=== PATIENT | male | born 1970 | race African-American/Black ===

== ENCOUNTER 2024-04-26 15:33 | Emergency (ER) | payer SELFPAY ==
[~2024-04-26] VITALS: Ht 172.7 cm; Wt 85.0 kg
[2024-04-26 16:25] VITALS: RESP 35
[2024-04-26 16:28] VITALS: PULSE 147
[2024-04-26] MEDS: LORAZEPAM 2MG/ML INJ IV ONE (16:30)
[2024-04-26] MEDS: SODIUM CHLORIDE 0.9% 1,000 ML IV ONE ×2 (16:39)
[2024-04-26 16:42] LABS: CARBON DIOXIDE 20 mEq/L (21-32); CHLORIDE 95 mEq/L (98-107); POTASSIUM 3.3 mEq/L (3.5-5.1); SODIUM 130 mEq/L (136-145)
[2024-04-26 16:43] LABS: CALCIUM 9.1 mg/dL (8.7-10.4)
[2024-04-26 16:47] LABS: CREATININE 1.9 mg/dL (0.6-1.3); GLUCOSE 64 mg/dL (70-105); PARTIAL THROMBOPLASTIN TIME 33.6 sec (23.4-31.0); PROTHROMBIN TIME 10.9 sec (9.6-11.0)
[2024-04-26 16:48] LABS: HEMATOCRIT. 41.2 % (42.0-52.0); HEMOGLOBIN. 13.5 g/dL (14.0-18.0); MEAN CORPUSCULAR HEMOGLOBIN 29.1 pg (28.0-32.0); MEAN CORPUSCULAR HGB CONC 32.7 g/dL (31.0-37.0); MEAN CORPUSCULAR VOLUME 89.1 fL (80.0-94.0); MEAN PLATELET VOLUME 10.6 fl (7.4-10.4); RED BLOOD CELL COUNT 4.62 mill/uL (4.7-6.1); RED CELL DISTRIBUTION WIDTH 19.5 % (11.6-14.6); UREA NITROGEN BLOOD 29 mg/dL (9-23); WHITE BLOOD COUNT 2.9 x1000/uL (4.5-11.0)
[2024-04-26 16:49] LABS: ALANINE AMINOTRANSFERASE 76 IU/L (10-49); ALBUMIN 3.8 g/dL (3.2-4.8); ASPARTATE AMINOTRANSFERASE 153 IU/L (<34); TROPONIN I HIGH SENSITIVITY 15 ng/L (3.0-53)
[2024-04-26 16:50] LABS: BILIRUBIN DIRECT 0.8 mg/dL (<=3.0); BILIRUBIN TOTAL 1.6 mg/dL (0.1-1.0); PHOSPHORUS 3.1 mg/dL (2.5-4.9)
[2024-04-26] MEDS: IPRATROPIUM/ALBUTEROL 0.5-3(2.5)MG/3ML NEB HHN ONE (16:51)
[2024-04-26 16:52] LABS: ETHANOL BLOOD < 10 mg/dL (<10)
[2024-04-26 16:59] LABS: DIFFERENTIAL COMMENT 1
[2024-04-26] MEDS: DEXTROSE 50% WATER 50ML SYRINGE IV ONE (17:00)
[2024-04-26 17:02] LABS: PLATELET 39 x1000/uL (130-400)
[2024-04-26] MEDS: ETOMIDATE 2MG/ML 10ML VIAL IV ONE (18:00)
[2024-04-26] MEDS: SUCCINYLCHOLINE CHLORIDE 200MG/10ML IV ONE (18:00)
[2024-04-26] MEDS ORDERED: FENTANYL 2500MCG/250ML PMX 250 ML IV ONE (18:00)
[2024-04-26 18:03] LABS: HEMATOCRIT. 36.9 % (42.0-52.0); HEMOGLOBIN. 12.2 g/dL (14.0-18.0); MEAN CORPUSCULAR HEMOGLOBIN 29.1 pg (28.0-32.0); MEAN CORPUSCULAR VOLUME 88.1 fL (80.0-94.0); MEAN PLATELET VOLUME 9.9 fl (7.4-10.4); RED BLOOD CELL COUNT 4.19 mill/uL (4.7-6.1); RED CELL DISTRIBUTION WIDTH 19.3 % (11.6-14.6); WHITE BLOOD COUNT 2.7 x1000/uL (4.5-11.0)
[2024-04-26 18:06] LABS: DIFFERENTIAL COMMENT 1
[2024-04-26 18:08] LABS: PLATELET 36 x1000/uL (130-400)
[2024-04-26 18:13] LABS: LACTIC ACID 2.5 mmol/L (0.4-2.0)
[2024-04-26 18:15] VITALS: PULSE 141; RESP 39; O2SAT 91
[2024-04-26 18:15] LABS: LACTIC ACID 7.9 mmol/L (0.4-2.0)
[2024-04-26] MEDS: NOREPINEPHRINE 8MG/250ML PMX 250 ML IV ONE (18:15)
[2024-04-26] MEDS ORDERED: FENTANYL CITRATE 2,500 MCG in SODIUM CHLORIDE 0.9% 200 ML IV PRN (18:45)
[2024-04-26 19:05] LABS: NUCLEATED RED BLOOD CELLS 1 /100 WBC
[2024-04-26 19:06] LABS: PLATELET ESTIMATE MARKEDLY DECREASED
[2024-04-26 19:08] LABS: ANISOCYTOSIS 1+; OVALOCYTES 1+
[2024-04-26] MEDS ORDERED: ONDANSETRON HCL 4MG/2ML INJ IV PRN (19:30)
[2024-04-26] MEDS ORDERED: IPRATROPIUM/ALBUTEROL 0.5-3(2.5)MG/3ML NEB HHN PRN (19:30)
[2024-04-26] MEDS ORDERED: ACETAMINOPHEN 325MG TABLET PO PRN ×2 (19:30)
[2024-04-26] MEDS ORDERED: GUAIFENESIN 200MG/10ML SUGAR FREE UDC PO PRN (19:30)
[2024-04-26] MEDS ORDERED: DOCUSATE SODIUM 100MG CAPSULE PO PRN (19:30)
[2024-04-26] MEDS ORDERED: PANTOPRAZOLE SODIUM 40 MG/VIAL IV SCH (19:30)
[2024-04-26 19:37] LABS: ANISOCYTOSIS 2+; PLATELET ESTIMATE DECREASED
[2024-04-26 19:38] LABS: GIANT PLATELETS 1+
[2024-04-26] MEDS: PANTOPRAZOLE SODIUM 40 MG/VIAL IV ONE (19:45)
[2024-04-26] MEDS ORDERED: LORAZEPAM 1MG TABLET PO PRN (20:00)
[2024-04-26] MEDS: VANCOMYCIN 1.5GM PMX (XELLIA) 300 ML IV NR (20:00)
[2024-04-26] MEDS ORDERED: DEXTROSE 50% WATER 50ML SYRINGE IV PRN (20:00)
[2024-04-26] MEDS ORDERED: VANCOMYCIN 1.5GM/250ML 250 ML IV NR (20:15)
[2024-04-26] MEDS: FOLIC ACID 1 MG, THIAMINE HCL 100 MG, MVI, ADULT NO.1 10 ML in DEXTROSE 5% WATER 1,000 ML IV NR (20:30)
[2024-04-26] MEDS ORDERED: LORAZEPAM 2MG/ML INJ IV PRN (20:30)
[2024-04-26 20:52] VITALS: PULSE 143; RESP 39; O2SAT 96
[2024-04-26] MEDS: IPRATROPIUM/ALBUTEROL 0.5-3(2.5)MG/3ML NEB HHN SCH (20:52)
[2024-04-26] MEDS: MEROPENEM 1GM/50ML DUPLEX 50 ML IV SCH (21:00)
[2024-04-26] MEDS ORDERED: MEROPENEM 1GM/50ML DUPLEX 50 ML IV SCH (21:00)
[2024-04-26] MEDS: BLOOD SUGAR DIAGNOSTIC STRIP TEST SCH (21:00)
[2024-04-26] MEDS: PANTOPRAZOLE SODIUM 40 MG/VIAL IV SCH (21:15)
[2024-04-26] MEDS ORDERED: PIPERACILLIN/TAZO 3.375G/50ML 50 ML IV SCH (22:00)
[2024-04-27] VITALS (15 sets, daily range): BP systolic 0; BP diastolic 0; PULSE 0–136; RESP 0–33; TEMP 36.16956; O2SAT 0–99
[2024-04-27 00:34] LABS: HEMATOCRIT 36.8 % (42.0-52.0); HEMOGLOBIN 12.3 g/dL (14.0-18.0)
[2024-04-27 00:46] LABS: CREATINE KINASE 849 IU/L (46-171)
[2024-04-27] MEDS ORDERED: ACETAMINOPHEN 1000MG/100ML 100 ML IV ONE (01:00)
[2024-04-27] MEDS: ACETAMINOPHEN 650MG SUPP PR NR (01:15)
[2024-04-27] MEDS: PROPOFOL 10MG/ML 100ML 100 ML IV SCH (02:30)
[2024-04-27 04:31] LABS: HEMATOCRIT. 36.7 % (42.0-52.0); MEAN CORPUSCULAR HEMOGLOBIN 29.2 pg (28.0-32.0); MEAN CORPUSCULAR HGB CONC 32.8 g/dL (31.0-37.0); MEAN PLATELET VOLUME 8.8 fl (7.4-10.4); RED BLOOD CELL COUNT 4.12 mill/uL (4.7-6.1); RED CELL DISTRIBUTION WIDTH 19.2 % (11.6-14.6)
[2024-04-27 04:40] LABS: CHLORIDE 99 mEq/L (98-107); PLATELET 35 x1000/uL (130-400); POTASSIUM 2.9 mEq/L (3.5-5.1); SODIUM 134 mEq/L (136-145); WHITE BLOOD COUNT 1.5 x1000/uL (4.5-11.0)
[2024-04-27 04:41] LABS: CALCIUM 8.4 mg/dL (8.7-10.4); CARBON DIOXIDE 22 mEq/L (21-32)
[2024-04-27 04:46] LABS: CREATININE 1.6 mg/dL (0.6-1.3); GLUCOSE 101 mg/dL (70-105); TRIGLYCERIDE 379 mg/dL (0-150); UREA NITROGEN BLOOD 30 mg/dL (9-23)
[2024-04-27 04:47] LABS: LDL CHOLESTEROL 16 mg/dL (5-100)
[2024-04-27 04:48] LABS: ALANINE AMINOTRANSFERASE 55 IU/L (10-49); ALBUMIN 3.4 g/dL (3.2-4.8); ASPARTATE AMINOTRANSFERASE 122 IU/L (<34); BILIRUBIN DIRECT 0.7 mg/dL (<=3.0); BILIRUBIN TOTAL 1.1 mg/dL (0.1-1.0); CHOLESTEROL 126 mg/dL (<200); CREATINE KINASE 643 IU/L (46-171); HDL CHOLESTEROL < 20 mg/dL (>55)
[2024-04-27 04:49] LABS: PROTEIN TOTAL 6.5 g/dL (6.0-8.3)
[2024-04-27 04:51] LABS: THYROID STIMULATING HORMONE 0.59 uIU/mL (0.55-4.78)
[2024-04-27 05:50] LABS: CLARITY URINE CLOUDY (CLEAR); COLOR URINE DARK YELLOW (YELLOW); GLUCOSE URINE NEGATIVE (NEGATIVE); KETONES URINE 1+ (NEGATIVE); LEUKOCYTE ESTERASE URINE NEGATIVE (NEGATIVE); NITRITE URINE NEGATIVE (NEGATIVE); OCCULT BLOOD URINE 3+ (NEGATIVE); PH URINE 5.5 (4.5-8.0); PROTEIN URINE 3+ (NEGATIVE); SPECIFIC GRAVITY URINE 1.018 (1.005-1.030)
[2024-04-27 05:53] LABS: PLATELET ESTIMATE DECREASED
[2024-04-27] MEDS ORDERED: MORPHINE SULFATE 2 MG/ML INJ (NOT FOR IM USE) IV PRN (06:00)
[2024-04-27 06:07] LABS: *AMPHETAMINES SCREEN URINE NEGATIVE (NEGATIVE)
[2024-04-27 06:08] LABS: *BARBITURATES SCREEN URINE NEGATIVE (NEGATIVE); *BENZODIAZEPINES SCREEN URINE NEGATIVE (NEGATIVE); *COCAINE SCREEN URINE NEGATIVE (NEGATIVE); CANNABINOID URINE SCREEN PRESUMPTIVE POSITIVE (NEGATIVE); ECSTASY MDMA SCREEN URINE NEGATIVE (NEGATIVE); METHADONE URINE SCREEN NEGATIVE (NEGATIVE); OPIATES URINE SCREEN NEGATIVE (NEGATIVE); PHENCYCLIDINE URINE SCREEN NEGATIVE (NEGATIVE)
[2024-04-27 06:38] LABS: BACTERIA URINE 1+; RBC URINE NONE SEEN /hpf (0-2); SQUAMOUS EPITHELIAL CELL URINE FEW /lpf (RARE/1+); WBC URINE NONE SEEN /hpf (0-2)
[2024-04-27] MEDS ORDERED: NOREPINEPHRINE 8MG/250ML PMX 250 ML IV ONE (07:28)
[2024-04-27] MEDS ORDERED: NALOXONE HCL 0.4MG/ML VIAL IV PRN (07:30)
[2024-04-27] MEDS: NOREPINEPHRINE 8MG/250ML PMX 250 ML IV PRN (07:30)
[2024-04-27] MEDS: KCL 20MEQ/100ML PREMIX 100 ML IV SCH (07:49)
[2024-04-27] MEDS ORDERED: EPINEPHRINE 0.1MG/ML (1:10,000) 10ML SYR ONE (07:56)
[2024-04-27] MEDS ORDERED: VASOPRESSIN 20 UNIT in SODIUM CHLORIDE 0.9% 99 ML IV PRN (08:30)
[2024-04-27] MEDS ORDERED: EPINEPHRINE 10 MG in SODIUM CHLORIDE 0.9% 240 ML IV PRN (08:30)
[2024-04-27] MEDS: EPINEPHRINE 0.1MG/ML (1:10,000) 10ML SYR IV ONE (08:47)
[2024-04-27] MEDS: KCL 20MEQ/100ML PREMIX 100 ML IV NR (08:48)
[2024-04-27 09:54] LABS: BG BASE EXCESS -21.7 mmol/L (-2.0-3.0); BG CARBOXYHEMOGLOBIN 0.6 % (0.5-1.5); BG DEOXYHEMOGLOBIN 26.8 % (0.0-5.0); BG FRACTION INSPIRED OXYGEN 100; BG METHEMOGLOBIN 0.3 % (0.5-1.5); BG OXYHEMOGLOBIN 72.3 % (94.0-98.0); BG PH 6.841 (7.350-7.450); BG SAMPLE SITE RIGHT RADIAL; BG TOTAL HEMOGLOBIN 13.2 g/dL (13.5-17.5); BG VENT MODE VENT - PRVC
[2024-04-27] MEDS: FOLIC ACID 1MG TABLET PO SCH (10:32)
[2024-04-27] MEDS: MULTIVITAMINS,THER W-MINERALS TABLET PO SCH (10:32)
[2024-04-27] MEDS: THIAMINE HCL 100 MG/1 ML 2ML VIAL IM SCH (11:57)
[2024-04-27] MEDS: VASOPRESSIN 20 UNIT in SODIUM CHLORIDE 0.9% 99 ML IV PRN (12:23)
[2024-04-27] MEDS: EPINEPHRINE 10 MG in SODIUM CHLORIDE 0.9% 240 ML IV PRN (12:26)
[2024-04-27] MEDS ORDERED: CALCIUM CHLORIDE 1GM/10ML SYR IV ONE (12:51)
[2024-04-27] MEDS ORDERED: ATROPINE SULFATE 1MG/10ML SYR ONE ×2 (13:32→14:16)
[2024-04-27] MEDS ORDERED: SODIUM BICARBONATE 8.4% 50MEQ/50ML SYR IV ONE (13:35)
[2024-04-27] MEDS ORDERED: PHENYLEPHRINE 50MG/250ML PMX 250 ML IV PRN ×2 (14:45→15:00)
[2024-04-27] MEDS ORDERED: VANCOMYCIN 750MG PMX (XELLIA) 150 ML IV SCH (16:00)
[2024-04-27] MEDS: MEROPENEM 1GM/50ML DUPLEX 50 ML IV SCH (17:11)
[2024-04-27] MEDS: VANCOMYCIN 1G PREMIX 200 ML IV SCH (17:11)
[2024-04-27] MEDS ORDERED: NOREPINEPHRINE 8MG/250ML PMX 250 ML IV PRN (18:15)
[2024-04-30] MEDS ORDERED: THIAMINE HCL 100MG TABLET PO SCH (09:00)
== END 2024-04-27 17:33 ==
LOC: ER 15:33 → EDBEDREQ 18:12 → ER 04-27 17:33
DX: J96.01 Acute respiratory failure with hypoxia (principal); E78.5 Hyperlipidemia, unspecified; J18.9 Pneumonia, unspecified organism; F10.20 Alcohol dependence, uncomplicated; R65.21 Severe sepsis with septic shock; A41.9 Sepsis, unspecified organism; Z79.899 Other long term (current) drug therapy; Z46.82 Encounter for fitting and adjustment of non-vascular catheter
CPT/HCPCS: 80076; 80048; 80320; 82962; 83880; 83605; 83690; 83735; 84100; 85025; 85610; 85730; 87040; 87186; 84484; 87077; 36415; 84145; 71045; 70450; 71250; 74176; 93970; 76700; 94640; 82803; 94660; 93005; 94070; 31500; 36556; 96368; 96365; 96366 ×2; 96375; 99291; 99292; 96367; 96372; 96376; J3370; J3490 ×9; J2060; J2185 ×2; J2470 ×2; J2704 ×2; J3411 ×2; Z7610 ×6; J7070; J7030; J0461; J3480; J7050 ×2; 94002; 94664; J3010; G0480